=== PATIENT | female | born 1985 | race African-American/Black ===

== ENCOUNTER 2017-05-29 17:47 | Emergency (ER) | payer SELFPAY ==
[~2017-05-29 17:47] MED LIST: ISOVUE-370 76%-LOCM 1 ML ONE
[2017-05-29 18:13] LABS: #Basophils 0.1 thou/uL (0.0-0.2); #Eosinphils 0.2 thou/uL (0.0-0.7); #Lymphocytes 2.5 thou/uL (1.20-3.40); #Monocytes 0.9 thou/uL (0.11-0.59); #Neutrophils 7.6 thou/uL (1.40-6.50); %Basophils 0.7 % (0.0-1.0); %Eosinophils 1.4 % (0.0-10.0); %Lymphocytes 22.3 % (21.0-51.0); %Monocytes 8.1 % (0.0-10.0); Hematocrit 40.8 % (36.0-47.0); Mean Platelet Volume 8.5 fL (7.4-10.4); Red Blood Cell (RBC) Count 4.58 mill/uL (4.20-5.40); White Blood Cell (WBC) Count 11.2 thou/uL (4.8-10.8)
[2017-05-29 18:38] LABS: ALT (SGPT) 12 U/L (8-55); AST (SGOT) 16 U/L (5-34); Alkaline Phosphatase 64 U/L (40-150); Anion Gap 11 mmol/L (10-20); BUN (Urea Nitrogen) 6 mg/dL (7.0-18.7); Bilirubin, Total 0.3 mg/dL (0.2-1.2); CK (CPK) 266 U/L (29-168); Calc. Creatinine Clearance 0 mL/min (70-130); Carbon Dioxide 25 mmol/L (22-29); Chloride 108 mmol/L (98-107); Estimated GFR-MDRD Greater than 90; Lipase 28 U/L (8-78); Protein, Total 7.1 g/dL (6.0-8.3)
[2017-05-29 18:42] LABS: Troponin I Less than 0.010 ng/mL (< 0.028)
--- NOTE | 2017-05-29 18:44 | RAD ---
PA AND LATERAL CHEST: Indication: History of dyspnea. Comparison: None. FINDINGS: No airspace consolidation or pleural effusion is evident. Cardiomediastinal silhouette is within nor mal limits. No acute osseous abnormality is evident. IMPRESSION: No acute cardiopulmonary abnormality. POS: AMADOUH
[2017-05-29] MEDS ORDERED: Morphine 10 MG/ML VIAL ONE (20:12)
[2017-05-29] MEDS ORDERED: Ketorolac Tromethamine 30 MG/ML VIAL ONE (20:18)
--- NOTE | 2017-05-29 20:26 | CT ---
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 No central or segmental pulmonary embolus is evident. Heart size appears within normal limits. The l ungs are clear. No pleural effusion is evident. Visualized upper abdomen is unremarkable for acute abnormality. No acute osseous abnormality is evid ent. IMPRESSION: 1. No central or segmental pulmonary embolus demonstrated. 2. 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 POS: KEVIN
[2017-05-29 22:39] LABS: Troponin I Less than 0.010 ng/mL (< 0.028)
--- NOTE | 2017-06-03 18:13 | EKG ---
Test Reason : Blood Pressure : / mmHG Vent. Rate : 088 BPM Atrial Rate : 088 BPM P-R Int : 152 ms QRS Dur : 074 ms QT Int : 368 ms P-R-T Axes : 052 039 030 degrees QTc Int : 445 ms Normal sinus rhythm Normal ECG Confirmed by LEXIS HAMMER M.D. ([id number]), image editor AMANDO ORTIZ ([id number]) on 06/03/2017 6:13:15 PM Referred By: Confirmed By:LEXIS HAMMER M.D.
--- NOTE | 2017-06-03 18:14 | EKG ---
Test Reason : Blood Pressure : / mmHG Vent. Rate : 072 BPM Atrial Rate : 072 BPM P-R Int : 166 ms QRS Dur : 056 ms QT Int : 394 ms P-R-T Axes : 041 034 027 degrees QTc Int : 431 ms Normal sinus rhythm Normal ECG Confirmed by LEXIS HAMMER M.D. ([id number]), editorial project manager AMANDO ORTIZ ([id number]) on 06/03/2017 6:13:32 PM Referred By: Confirmed By:LEXIS HAMMER M.D.
== END 2017-05-29 23:01 | disposition home or self-care (01) ==
LOC: ERS 17:47
DX: R07.89 Other chest pain (principal); F41.9 Anxiety disorder, unspecified
CPT/HCPCS: 36415; 71020; 71275; 80053; 82553; 83690; 83880; 84484; 84703; 85025; 85379; 93005; 96361; 96374; J1885; J2270